=== PATIENT | female | born 1960 | race Caucasian/White ===

== ENCOUNTER → 2016-08-12 | Outpatient (CLI) | payer MEDICAID ==
--- NOTE | 2016-08-12 12:57 | USB ---
Reason for exam: clinical finding. History: Patient is postmenopausal. Family history of breast cancer in paternal aunt at age 60. Took estrogen for 3 years. Took progesterone for 3 years. Physical Findings: Nurse Summary: x 2 palpable areas (nurse kp). US Breast LT Left breast ultrasound including all four quadrants, the retroareolar region and axilla demonstrates a 0.4 x 0.3 x 0.3cm round lesion too small to characterize at 2 o'clock. These results were verbally communicated with the patient and result sheet given to the patient on 08/12/16. ASSESSMENT: Benign, BI-RAD 2 RECOMMENDATION: Follow-up diagnostic mammogram of both breasts in 6 months. Manage patient on a clinical basis.
== END | disposition home or self-care (01) ==
LOC: RADUSWWP 10:54
PROVIDERS: ATTEND Specialist
DX: N63 Unspecified lump in breast (principal)

== ENCOUNTER → 2016-09-21 | Outpatient (CLI) | payer MEDICAID ==
[2016-09-21 08:49] LABS: Hemoglobin A1C 4.9 % (4.2-6.1)
[2016-09-21 12:08] LABS: ALT 36 U/L (9-52); AST 24 U/L (14-36); Alkaline Phosphatase 50 U/L (38-126); Anion Gap 9 mmol/L; Blood Urea Nitrogen 13 mg/dL (7-17); Calcium 9.6 mg/dL (8.4-10.2); Carbon Dioxide 27 mmol/L (22-30); Chloride 107 mmol/L (98-107); Cholesterol 187 mg/dL (<200); Glucose 80 mg/dL (74-99); HDL Cholesterol 95 mg/dL (40-60); Non-African American GFR(MDRD) >60 (>60 ml/min/1.73 sqM); Potassium 4.7 mmol/L (3.5-5.1); Sodium 143 mmol/L (137-145); Total Bilirubin 0.8 mg/dL (0.2-1.3); Total Protein 6.9 g/dL (6.3-8.2); Triglycerides 57 mg/dL (<150)
[2016-09-21 12:39] LABS: Estradiol 46 pg/mL
== END | disposition home or self-care (01) ==
LOC: LABWHC1 06:58
PROVIDERS: ATTEND Specialist
DX: R79.89 Other specified abnormal findings of blood chemistry (principal); F90.0 Attention-deficit hyperactivity disorder, predominantly inattentive type; L65.9 Nonscarring hair loss, unspecified; R53.82 Chronic fatigue, unspecified; E78.5 Hyperlipidemia, unspecified; R79.9 Abnormal finding of blood chemistry, unspecified; R53.83 Other fatigue; E03.9 Hypothyroidism, unspecified; R73.01 Impaired fasting glucose; D89.9 Disorder involving the immune mechanism, unspecified; F51.02 Adjustment insomnia; E88.81 Metabolic syndrome and other insulin resistance; N95.9 Unspecified menopausal and perimenopausal disorder; M85.80 Other specified disorders of bone density and structure, unspecified site; E07.9 Disorder of thyroid, unspecified; R63.5 Abnormal weight gain
CPT/HCPCS: 36415; 80053; 80061; 82306; 82670; 83036; 83090; 83525; 84144; 84439; 84443; 84481; 86141; 86376; 86800

== ENCOUNTER → 2017-04-12 | Outpatient (CLI) | payer MEDICAID ==
[2017-04-12 11:04] LABS: Basophils % (A) 1 %; CHCM 33.4; Eosinophils # (A) 0.1 k/uL (0-0.7); Eosinophils % (A) 2 %; HCT 36.5 % (34.0-46.0); HDW 2.05; HGB 12.3 gm/dL (11.4-16.0); Luc # (Auto) 0.11; Luc % (Auto) 2; Lymphocytes % (A) 41 %; MCH 31.3 pg (25.0-35.0); MCHC 33.6 g/dL (31.0-37.0); Mean Platelet Volume 8.6; Monocytes # (A) 0.3 k/uL (0-1.0); Monocytes % (A) 6 %; Neutrophils # (A) 2.3 k/uL (1.3-7.7); Neutrophils % (A) 49 %; RBC 3.92 m/uL (3.80-5.40); RDW 11.8 % (11.5-15.5); WBC 4.8 k/uL (3.8-10.6); WBC (Perox) 4.92
[2017-04-12 12:37] LABS: ALT 33 U/L (9-52); AST 28 U/L (14-36); Alkaline Phosphatase 54 U/L (38-126); Anion Gap 10 mmol/L; Blood Urea Nitrogen 13 mg/dL (7-17); Calcium 9.5 mg/dL (8.4-10.2); Carbon Dioxide 25 mmol/L (22-30); Chloride 102 mmol/L (98-107); Glucose 86 mg/dL (74-99); Non-African American GFR(MDRD) >60 (>60 ml/min/1.73 sqM); Potassium 4.4 mmol/L (3.5-5.1); Sodium 137 mmol/L (137-145); Total Bilirubin 0.4 mg/dL (0.2-1.3); Total Protein 7.2 g/dL (6.3-8.2)
[2017-04-12 17:10] LABS: Estradiol <11.8 pg/mL
== END | disposition home or self-care (01) ==
LOC: LABWHC1 10:21
PROVIDERS: ATTEND Family Medicine
DX: E03.9 Hypothyroidism, unspecified (principal); N95.1 Menopausal and female climacteric states
CPT/HCPCS: 36415; 80053; 82670; 83001; 83002; 84144; 84146; 84439; 84443; 84481; 85025; 86376; 86800

== ENCOUNTER → 2017-04-27 | Outpatient (CLI) | payer MEDICAID ==
--- NOTE | 2017-04-27 14:23 | US ---
EXAMINATION TYPE: US thyroid st tissue head/neck DATE OF EXAM: 04/27/2017 COMPARISON: US 2014 CLINICAL HISTORY: E04.1 Thyroid nodule; c/o throat phlegm GLAND SIZE: Right Lobe: 5.9 x 2.2 x 1.7 cm Overall Parenchyma: heterogenous Left Lobe: 4.8 x 1.4 x 1.1 cm Overall Parenchyma: heterogeneous Isthmus Thickness: 0.3 cm NODULES RIGHT: # of nodules measured on right: 1 1. 4.1 X 2.5 x 1.7 cm hypoechoic mixed nodule at the mid pole with well-defined margins; present wi th microcalcifications and larger central calcification. This nodule is wider than tall and shows in tranodular vascularity. Prior size: 3.7 x 1.3 x 2.3 cm LEFT: # of nodules measured on left: 3 largest of multiple 1. 1.4 X 1.1 x 0.8 cm hypoechoic mixed nodule at the lower pole with well-defined margins. This no dule is wider than tall and shows no intranodular vascularity. Prior size: 1.2 x 0.9 x 0.9 cm 2. 1.0 X 0.7 x 0.7 cm hypoechoic solid nodule at the lower lateral pole with well-defined margins; p resent with microcalcifications. This nodule is wider than tall and shows intranodular vascularity. Prior size: 1.2 x 0.6 x 0.8 cm 3. 0.7 X 0.4 x 0.5 cm hypoechoic solid nodule at the mid lower pole with well-defined margins; prese nt with microcalcifications. This nodule is taller than wide and shows no intranodular vascularity. Prior size: 0.7 x 0.3 x 0.7 cm ISTHMUS: # of nodules measured in the isthmus: 0 Bilateral neck scanned, no evidence of lymphadenopathy. IMPRESSION: 1. Multinodular thyroid. There is interval mental increase in size of the dominant right thyroid nodu le which measures larger compared to the previous exam. 2. There is a left-sided thyroid nodule measuring 1.4 cm and previously measured 1.2 cm and demonstra kalin minimal change. 3. Remaining nodules are stable in size. 4. Tissue is somewhat heterogeneous correlate for thyroiditis.
== END | disposition home or self-care (01) ==
LOC: RADUSWWP 12:14
PROVIDERS: ATTEND Family Medicine
DX: E04.2 Nontoxic multinodular goiter (principal)
CPT/HCPCS: 76536

== ENCOUNTER → 2017-05-15 | Outpatient (CLI) | payer MEDICAID ==
--- NOTE | 2017-05-16 07:32 | MM ---
Reason for exam: additional evaluation requested from prior study. Last mammogram was performed 10 months ago. History: Patient is postmenopausal. Family history of breast cancer in paternal aunt at age 60. Took estrogen for 3 years. Took progesterone for 3 years. Physical Findings: Nurse did not find any significant physical abnormalities on exam. MG 3D Diag Mammo W/Cad LANE Bilateral CC and MLO view(s) were taken. Prior study comparison: August 12, 2016, left breast US breast LT. July 26, 2016, bilateral MG 3d screening mammo w/cad. October 30, 2015, right breast MG 3d diag mammo w/cad RT. The breast tissue is heterogeneously dense. This may lower the sensitivity of mammography. There is chronic nodularity in the right breast, this is unchanged for 2 years compatible with a benign etiology. Nodular asymmetry superior left breast on the MLO view. These results were verbally communicated with the patient and result sheet given to the patient on 05/15/17. ASSESSMENT: Benign, BI-RAD 2 RECOMMENDATION: Routine screening mammogram of both breasts in 1 year. Note that the patient has extensive nodularity in the upper outer quadrant of the right breast. Patient should continue monthly self breast exams.
== END | disposition home or self-care (01) ==
LOC: RADMAMWWP 15:52
PROVIDERS: ATTEND Specialist
DX: R92.8 Other abnormal and inconclusive findings on diagnostic imaging of breast (principal)
CPT/HCPCS: G0204; G0279

== ENCOUNTER 2017-06-12 11:15 | Day surgery (SDC) | payer MEDICAID ==
[~2017-06-12 11:15] MED LIST: ALPRAZolam 0.5 MG TAB PO ONE; LIDOCAINE-PRILOCAINE 2.5-2.5% CREAM 5 GM TUBE TOPICAL STA
--- NOTE | 2017-06-12 15:58 | US ---
ULTRASOUND GUIDED FNA THYROID BIOPSY: CLINICAL HISTORY: Request for biopsy of the 4.1 cm right thyroid nodule and 1.4 similar left thyroid nodule FINDINGS: The procedure was explained to the patient. The risks, complications, benefits and alternatives were discussed and any questions were answered. Informed consent was obtained. Patient was placed supin e on the ultrasound table and prepped and draped in the usual sterile fashion. Right thyroid: Utilizing a 25 gauge needle, five passes were made into the requested right thyroid no dule. A single 18-gauge core sample also obtained. Left thyroid: Utilizing a 25 gauge needle, five passes were made into the requested left thyroid nodu le Patient was stable throughout the procedure. Pathology is pending. All elements of maximal barrier and sterile technique were utilized. IMPRESSION: 1. Successful ultrasound guided FNA thyroid biopsy bilateral thyroid nodules. 2. Successful ultrasound guided core biopsy right thyroid nodule. 3. Note is made that both lesions appear to be more fluid-filled on today's exam with the left thyroi d nodule appearing predominantly cystic which will lower the diagnostic yield.
[2017-06-12 16:08] VITALS: TEMP 97.7
[2017-06-12 16:09] VITALS: BP 124/74; PULSE 74; RESP 16
== END 2017-06-12 14:08 | disposition home or self-care (01) ==
LOC: RADPROMAIN 11:15
PROVIDERS: ATTEND Family Medicine
DX: E04.2 Nontoxic multinodular goiter (principal)
CPT/HCPCS: 10022; 76942; 88173; 88305

== ENCOUNTER → 2017-08-17 | Outpatient (CLI) | payer MEDICAID | END | disposition home or self-care (01) | LOC: RADECHMAIN 12:53 | PROVIDERS: ATTEND Internal Medicine Cardiovascular Disease | DX: R00.2 Palpitations (principal) | CPT/HCPCS: 93270; 93271 ==

== ENCOUNTER → 2017-09-19 | Outpatient (CLI) | payer MEDICAID ==
[2017-09-19 08:21] LABS: T4, Free (Free Thyroxine) 0.67 ng/dL (0.78-2.19)
--- NOTE | 2017-09-19 13:19 | ECHOF ---
Referral Reason:R00.0 tachycardia MEASUREMENTS -------- HEIGHT: 165.1 cm WEIGHT: 58.5 kg BP: 144/69 RVIDd: 3.0 cm (< 3.3) IVSd: 1.0 cm (0.6 - 1.1) LVIDd: 4.8 cm (3.9 - 5.3) LVPWd: 1.0 cm (0.6 - 1.1) IVSs: 1.4 cm LVIDs: 3.4 cm LVPWs: 1.3 cm LA Diam: 3.1 cm (2.7 - 3.8) LAESV Index (A-L): 29.81 ml/m Ao Diam: 3.2 cm (2.0 - 3.7) AV Cusp: 2.1 cm (1.5 - 2.6) MV EXCURSION: 25.206 mm (> 18.000) MV EF SLOPE: 141 mm/s (70 - 150) EPSS: 0.8 cm MV E Skinny: 0.94 m/s MV DecT: 192 ms MV A Skinny: 0.48 m/s MV E/A Ratio: 1.96 RAP: 5.00 mmHg RVSP: 20.98 mmHg FINDINGS -------- Sinus rhythm. This was a technically good study. The left ventricular size is normal. Left ventricular wall thickness is normal. Overall left vent ricular systolic function is normal with, an EF between 60 - 65 %. The right ventricle is normal in size. LA is midly dilated 29-33ml/m2. The right atrium is normal in size. The aortic valve is trileaflet and appears structurally normal. There is trace to mild mitral regurgitation. Mild tricuspid regurgitation present. Right ventricular systolic pressure is normal at < 35 mmHg. Trace/mild (physiologic) pulmonic regurgitation. The aortic root size is normal. Normal inferior vena cava with normal inspiratory collapse consistent with estimated right atrial pre ssure of 5 mmHg. There is no pericardial effusion. CONCLUSIONS -------- 1. Sinus rhythm. 2. This was a technically good study. 3. The left ventricular size is normal. 4. Left ventricular wall thickness is normal. 5. Overall left ventricular systolic function is normal with, an EF between 60 - 65 %. 6. The right ventricle is normal in size. 7. LA is midly dilated 29-33ml/m2. 8. The right atrium is normal in size. 9. The aortic valve is trileaflet and appears structurally normal. 10. There is trace to mild mitral regurgitation. 11. Mild tricuspid regurgitation present. 12. Right ventricular systolic pressure is normal at < 35 mmHg. 13. Trace/mild (physiologic) pulmonic regurgitation. 14. The aortic root size is normal. 15. Normal inferior vena cava with normal inspiratory collapse consistent with estimated right atrial pressure of 5 mmHg. 16. There is no pericardial effusion. CANDY ATTENDANT: Jacy Vo RDCS
== END | disposition home or self-care (01) ==
LOC: LABWHC1 07:04
PROVIDERS: ATTEND Internal Medicine Endocrinology, Diabetes & Metabolism
DX: E05.90 Thyrotoxicosis, unspecified without thyrotoxic crisis or storm (principal); R00.2 Palpitations; R00.0 Tachycardia, unspecified; I49.3 Ventricular premature depolarization
CPT/HCPCS: 36415; 84439; 84443; 84480; 93306

== ENCOUNTER → 2017-12-18 | Outpatient (CLI) | payer MEDICAID ==
--- NOTE | 2017-12-19 09:58 | US ---
EXAMINATION TYPE: US thyroid st tissue head/neck DATE OF EXAM: 12/18/2017 COMPARISON: NONE CLINICAL HISTORY: E04.2 NON TOXIC MULTINODULAR GOITER. Follow up thyroid nodules GLAND SIZE: Right Lobe: 5.2 x 1.8 x 2.7 cm Overall Parenchyma: heterogenous Left Lobe: 4.7 x 1.1 x 1.4 cm Overall Parenchyma: heterogeneous Isthmus Thickness: 0.2 cm NODULES RIGHT: # of nodules measured on right: 1 1. 3.9 X 1.9 x 2.3 cm hypoechoic mixed nodule at the mid pole with well-defined margins; present wi th microcalcifications and larger central calcification. This nodule is wider than tall and shows in tranodular vascularity. Prior size: 4.1 x 1.7 x 2.5 cm LEFT: # of nodules measured on left: 3 1. 1.6 X 1.0 x 1.3 cm hypoechoic mixed nodule at the lower pole with well-defined margins; . This nodule is wider than tall and shows intranodular vascularity. This may be slightly larger than prior exam. Prior size: 1.4 x 0.8 x 1.1 cm 2. 1.3 X 1.1 x 0.9 cm isoechoic solid nodule at the lower pole with well-defined margins; . This no dule is wider than tall and shows intranodular vascularity. This is slightly larger than prior exam. This solid lesion appears hypervascular. Prior size: 1.0 x 0.7 x 0.7 cm 3. 0.8 X 0.6 x 0.7 cm isoechoic solid nodule at the mid pole with well-defined margins; . This nodu le is wider than tall and shows intranodular vascularity. Prior size: 0.7 x 0.4 x 0.5 cm ISTHMUS: # of nodules measured in the isthmus: 0 Bilateral neck scanned, normal appearing lymph node left neck Heterogeneous gland. 1 nodule right lobe. Largest 3 nodules measured left lobe. IMPRESSION: 1. Heterogenous thyroid with multiple nodules present bilaterally. Some cystic nodules are present. 2. The larger nodules on the left are slightly enlarged from comparison study of 2017. 3. Solid nodule on the left which has slightly enlarged over the interval appears hypervascular which can be associated with a neoplasm.
== END | disposition home or self-care (01) ==
LOC: RADUSWWP 06:56
PROVIDERS: ATTEND Internal Medicine Endocrinology, Diabetes & Metabolism
DX: E04.2 Nontoxic multinodular goiter (principal)
CPT/HCPCS: 36415; 76536; 84439; 84443

== ENCOUNTER → 2018-02-26 | Outpatient (CLI) | payer MEDICAID ==
[2018-02-26 07:53] LABS: T4, Free (Free Thyroxine) 0.88 ng/dL (0.78-2.19)
== END | disposition home or self-care (01) ==
LOC: LABWHC1 07:00
PROVIDERS: ATTEND Internal Medicine Endocrinology, Diabetes & Metabolism
DX: E05.90 Thyrotoxicosis, unspecified without thyrotoxic crisis or storm (principal)
CPT/HCPCS: 36415; 84439; 84443

== ENCOUNTER → 2018-04-13 | Outpatient (CLI) | payer MEDICAID ==
[2018-04-13 08:02] LABS: Calcium 9.5 mg/dL (8.4-10.2)
[2018-04-13 16:24] LABS: Thyroid Peroxidase Antibodies 363.7 U/mL (0.0-60.0); Vitamin D 25 Hydroxy 64.3 ng/mL (30.0-100.0)
[2018-04-13 16:56] LABS: Parathyroid Hormone Intact 41.2 pg/mL (14.0-72.0)
[2018-04-13 19:22] LABS: Hemoglobin A1C 4.8 % (4.0-6.0)
== END ==
LOC: LABWHC1 07:01
PROVIDERS: ATTEND Surgery
DX: E04.2 Nontoxic multinodular goiter (principal)
CPT/HCPCS: 36415; 82306; 82310; 82465; 83036; 83970; 84436; 84443; 84480; 86376; 86800

== ENCOUNTER → 2018-05-16 | Outpatient (CLI) | payer MEDICAID ==
--- NOTE | 2018-05-17 10:30 | NM ---
EXAMINATION TYPE: NM thyroid image w uptake DATE OF EXAM: 05/17/2018 COMPARISON: Ultrasound 12/18/2017, nuclear medicine uptake 07/15/2011 HISTORY: Hyperthyroidism TECHNIQUE: Thyroid iodine uptake is calculated and images performed after the oral administration of 350 uCi 1-123 Capsule. FINDINGS: There is normal reduced uptake diffusely throughout the left lobe of the thyroid. Area of c old or reduced uptake involving the inferior pole. Right thyroid demonstrates heterogeneous uptake wi th a focal cold defect involving the upper pole.. The 4 hour iodine uptake is calculated at 23.3% (n ormal range 8-14%). The 24-hour iodine uptake is calculated at 49.4% (normal range 15-35%). IMPRESSION: 1. Findings are compatible with hyperthyroidism which appears new compared to the prior exam of 2010. 2. Diffuse heterogeneous uptake persists throughout the thyroid with marked reduction in uptake invol ving the left lobe of the thyroid. Cold defects involving the upper pole on the right and lower pole.
== END | disposition home or self-care (01) ==
LOC: RADNMMAIN 06:54
PROVIDERS: ATTEND Surgery
DX: E04.2 Nontoxic multinodular goiter (principal)
CPT/HCPCS: 78014; A9516

== ENCOUNTER → 2018-07-20 | Outpatient (CLI) | payer MEDICAID ==
[2018-07-20 12:20] LABS: ALT 20 U/L (8-44); AST 25 U/L (13-35); C Reactive Protein <0.4 mg/dL (0.0-0.8); Calcium 9.7 mg/dL (8.7-10.3)
== END | disposition home or self-care (01) ==
LOC: LABWHC1 06:59
PROVIDERS: ATTEND Surgery
DX: E04.2 Nontoxic multinodular goiter (principal)
CPT/HCPCS: 36415; 82306; 82310; 83970; 84436; 84439; 84443; 84450; 84460; 84480; 86140; 86800

== ENCOUNTER → 2018-08-28 | Outpatient (CLI) | payer MEDICAID ==
[2018-08-28 07:36] LABS: HCT 37.8 % (34.0-46.0); HGB 12.9 gm/dL (11.4-16.0); MCH 32.6 pg (25.0-35.0); MCHC 34.1 g/dL (31.0-37.0); MCV 95.6 fL (80.0-100.0); Mean Platelet Volume 8.5; Platelet Count 177 k/uL (150-450); RBC 3.95 m/uL (3.80-5.40); RDW 12.2 % (11.5-15.5); WBC 3.6 k/uL (3.8-10.6)
[2018-08-28 12:50] LABS: Albumin 4.6 g/dL (3.80-4.90); Albumin/Globulin Ratio 2.3 (1.20-2.10); Anion Gap 7.2 mmol/L (4.00-12.00); Calcium 9.4 mg/dL (8.7-10.3); Carbon Dioxide 26.8 mmol/L (21.6-31.8); Potassium 4.4 mmol/L (3.5-5.5); Total Bilirubin 0.7 mg/dL (0.3-1.2); Total Protein 6.6 g/dL (6.2-8.2)
== END ==
LOC: LABWHC1 06:57
PROVIDERS: ATTEND Specialist
DX: Z01.419 Encounter for gynecological examination (general) (routine) without abnormal findings (principal)
CPT/HCPCS: 36415; 80053; 80061; 82306; 85027

== ENCOUNTER → 2018-09-05 | Outpatient (CLI) | payer MEDICAID ==
--- NOTE | 2018-09-06 10:11 | MM ---
Reason for exam: screening (asymptomatic). Last mammogram was performed 1 year and 4 months ago. History: Patient is postmenopausal. Family history of breast cancer in paternal aunt at age 60. Took estrogen for 3 years. Took progesterone for 3 years. Physical Findings: A clinical breast exam by your physician is recommended on an annual basis and results should be correlated with mammographic findings. MG 3D Screening Mammo W/Cad Bilateral CC and MLO view(s) were taken. Prior study comparison: May 15, 2017, bilateral MG 3d diag mammo w/cad LANE. July 26, 2016, bilateral MG 3d screening mammo w/cad. The breast tissue is heterogeneously dense. This may lower the sensitivity of mammography. There is chronic nodularity bilaterally. There is no dominant lesion. No significant changes when compared with prior studies. ASSESSMENT: Benign, BI-RAD 2 RECOMMENDATION: Routine screening mammogram of both breasts in 1 year.
== END ==
LOC: RADMAMWWP 11:09
PROVIDERS: ATTEND Specialist
DX: Z12.31 Encounter for screening mammogram for malignant neoplasm of breast (principal)
CPT/HCPCS: 77063; 77067

== ENCOUNTER → 2018-09-21 | Outpatient (CLI) | payer MEDICAID ==
[2018-09-21 17:13] LABS: Parathyroid Hormone Intact 56.4 pg/mL (14.0-72.0)
[2018-09-21 17:42] LABS: Vitamin D 25 Hydroxy 68.3 ng/mL (30.0-100.0)
[2018-09-21 17:54] LABS: C Reactive Protein <0.4 mg/dL (0.0-0.8); Thyroid Peroxidase Antibodies 341.2 U/mL (0.0-60.0)
== END ==
LOC: LABWHC1 06:59
PROVIDERS: ATTEND Surgery
DX: E04.2 Nontoxic multinodular goiter (principal)
CPT/HCPCS: 36415; 82306; 83970; 84436; 84439; 84443; 84480; 86140; 86376; 86800

== ENCOUNTER → 2018-10-02 | Outpatient (CLI) | payer MEDICAID ==
--- NOTE | 2018-10-02 18:08 | BD ---
EXAMINATION TYPE: Axial Bone Density DATE OF EXAM: 10/02/2018 COMPARISON: 06/24/2015 CLINICAL HISTORY: 58-year-old female screening for osteoporosis Height: 64 IN Weight: 138 LBS FRAX RISK QUESTIONS: Family History (Parent hip fracture): YES FATHER Secondary Osteoporosis: 2. Hyperthyroidism: YES 3. Menopause before 45: YES AGE 36 RISK FACTORS HISTORY OF: Active: YES Diet low in dairy products/other sources of calcium: YES Postmenopausal woman: AGE 36 Take estrogen and/or progesterone medications: AGE 35 - 37 MEDICATIONS: Thyroid Medications: YES Which medication: TAPZOLE How Lon YEARS Additional Medications: VIT D, TAPZOLE, EXAM MEASUREMENTS: Bone mineral densitometry was performed using the NERI System. Bone mineral density as measured about the Lumbar spine is: ----- L1-L4(G/cm2): 0.902 T Score Values are as follows: ----- L2: -2.1 ----- L3: -2.3 ----- L4: -2.3 ----- L1-L4: -2.3 Bone mineral density has: Decreased -1.2% since study of: 06/24/2015 Bone mineral density about the R hip (g/cm2): 0.793 Bone mineral density about the L hip (g/cm2): 0.748 T Score values are as follows: -----R Neck: -1.8 -----L Neck: -2.1 -----R Total: -1.9 -----L Total: -2.1 Bone mineral density has: Decreased -4.3% since study of: 06/24/2015 IMPRESSION: Osteopenia (T Score between -2.5 and -1). There is slightly increased risk of fracture and the patient may be considered for treatment. Re-Screen 2-5 years. NOTE: T-SCORE=SD OF THE YOUNG ADULT MEAN.
== END | disposition home or self-care (01) ==
LOC: RADBDWWP 12:50
PROVIDERS: ATTEND Specialist
DX: Z13.820 Encounter for screening for osteoporosis (principal); M85.80 Other specified disorders of bone density and structure, unspecified site
CPT/HCPCS: 77080

== ENCOUNTER → 2018-10-26 | Outpatient (CLI) | payer MEDICAID | END | disposition home or self-care (01) | LOC: LABWHC1 07:08 | PROVIDERS: ATTEND Surgery | DX: E04.2 Nontoxic multinodular goiter (principal) | CPT/HCPCS: 36415; 84436; 84443; 84480 ==

== ENCOUNTER → 2018-12-19 | Outpatient (CLI) | payer MEDICAID ==
--- NOTE | 2018-12-19 22:20 | MR ---
EXAMINATION TYPE: MR shoulder LT wo con DATE OF EXAM: 12/19/2018 COMPARISON: NONE HISTORY: Left shoulder pain, dislocation rule out labral tear, Bankart lesion TECHNIQUE: Multiplanar, multisequence imaging of the left shoulder is performed without contrast. FINDINGS: Rotator Cuff: Supraspinatus and infraspinatus tendons are intact. Subscapularis tendon is intact. Rot ator cuff muscle bulk is preserved. Acromioclavicular Joint: Moderate narrowing and capsular hypertrophy is seen. Underlying fat plane is effaced coronal image 15. Distal acromion morphology is unremarkable. Glenohumeral Joint: Severe narrowing with subchondral cystic change in involving the osseous glenoid central aspect and extending inferiorly. Moderate to large joint effusion. Labrum: The superior labrum show suspicious collapse and abnormal signal coronal image 19, SLAP type tear is suspected. Biceps Tendon: The long head of biceps is in normal location within bicipital groove. Intracapsular p ortion shows suspected focus of increased signal seen best on images 19 through 21. Bone marrow signal: There is loss its spherical shape superior most axial cuts of the humeral head wi th bony defect along the posterior margin where there is heterogeneous reactive signal extending into the proximal humeral metaphysis. Other: There is heterogeneous increased signal or edema extending into the subscapularis muscle IMPRESSION: 1. 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 2. Confirmation of superior labral suspect a SLAP tear. 3. Moderate to advanced glenohumeral joint arthropathy as detailed above. 4. Partial tear or intracapsular portion long head of biceps tendon felt present.
== END | disposition home or self-care (01) ==
LOC: RADMRIMAIN 16:37
PROVIDERS: ATTEND Physician Assistant
DX: M19.012 Primary osteoarthritis, left shoulder (principal); M21.822 Other specified acquired deformities of left upper arm

== ENCOUNTER → 2019-05-09 | Outpatient (CLI) | payer MEDICAID ==
[2019-05-09 11:38] LABS: Vitamin D 25 Hydroxy 57.3 ng/mL (30.0-100.0)
[2019-05-09 11:40] LABS: C Reactive Protein <0.4 mg/dL (0.0-0.8)
== END | disposition home or self-care (01) ==
LOC: LABWHC1 06:59
PROVIDERS: ATTEND Surgery
DX: E04.2 Nontoxic multinodular goiter (principal)
CPT/HCPCS: 36415; 82306; 84436; 84443; 84480; 86140

== ENCOUNTER → 2019-05-21 | Outpatient (CLI) | payer MEDICAID ==
[2019-05-22 01:05] LABS: ALT 21 U/L (8-44); AST 27 U/L (13-35); GGT 22 U/L (0-38)
== END | disposition home or self-care (01) ==
LOC: LABWHC1 17:14
PROVIDERS: ATTEND Surgery
DX: E06.3 Autoimmune thyroiditis (principal)
CPT/HCPCS: 36415; 82977; 84450; 84460

== ENCOUNTER → 2019-07-30 | Outpatient (CLI) | payer MEDICAID ==
[2019-07-30 11:58] LABS: ALT 20 U/L (8-44); AST 28 U/L (13-35); C Reactive Protein <0.4 mg/dL (0.0-0.8); GGT 20 U/L (0-38)
== END | disposition home or self-care (01) ==
LOC: LABWHC1 07:00
PROVIDERS: ATTEND Surgery
DX: E04.2 Nontoxic multinodular goiter (principal)
CPT/HCPCS: 36415; 82977; 84436; 84443; 84450; 84460; 84480; 86140

== ENCOUNTER → 2020-03-06 | Outpatient (CLI) | payer MEDICAID ==
--- NOTE | 2020-03-10 08:21 | MM ---
Reason for exam: screening (asymptomatic). Last mammogram was performed 1 year and 6 months ago. History: Patient is postmenopausal. Family history of breast cancer in paternal aunt at age 60. Took estrogen for 3 years. Took progesterone for 3 years. Physical Findings: A clinical breast exam by your physician is recommended on an annual basis and results should be correlated with mammographic findings. MG 3D Screening Mammo W/Cad Bilateral CC, MLO, and XCCL view(s) were taken. Prior study comparison: September 05, 2018, bilateral MG 3d screening mammo w/cad. May 15, 2017, bilateral MG 3d diag mammo w/cad LANE. The breast tissue is heterogeneously dense. This may lower the sensitivity of mammography. Finding #1: There are multiple typically benign round masses in the right breast. Finding #2: There are typically benign calcifications in both breasts. No significant changes in finding since September 05, 2018 and May 15, 2017. ASSESSMENT: Benign, BI-RAD 2 RECOMMENDATION: Routine screening mammogram of both breasts in 1 year.
== END | disposition home or self-care (01) ==
LOC: RADMAMWWP 07:05
PROVIDERS: ATTEND Specialist
DX: Z12.31 Encounter for screening mammogram for malignant neoplasm of breast (principal)
CPT/HCPCS: 77063; 77067

== ENCOUNTER → 2020-05-08 | Outpatient (CLI) | payer MEDICAID ==
[2020-05-08 13:58] LABS: LDL Cholesterol, Direct 117.1 mg/dL (0.0-129.0)
[2020-05-08 14:49] LABS: Hemoglobin A1C 5.2 % (4.0-6.0)
== END | disposition home or self-care (01) ==
LOC: LABWHC1 07:10
PROVIDERS: ATTEND Surgery
DX: E78.5 Hyperlipidemia, unspecified (principal); E04.2 Nontoxic multinodular goiter; R94.5 Abnormal results of liver function studies
CPT/HCPCS: 36415; 82465; 82977; 83036; 83718; 83721; 84436; 84443; 84450; 84460; 84480

== ENCOUNTER → 2020-08-06 | Outpatient (CLI) | payer MEDICAID | END | disposition home or self-care (01) | LOC: LABWHC1 10:14 | PROVIDERS: ATTEND Surgery | DX: E04.2 Nontoxic multinodular goiter (principal) | CPT/HCPCS: 36415; 84436; 84439; 84443; 84480 ==

== ENCOUNTER → 2020-09-22 | Outpatient (CLI) | payer MEDICAID ==
[2020-09-22 11:39] LABS: Chol/HDL Ratio 2.33; LDL Cholesterol,Calculated 101.8 mg/dL (0.0-131.0); VLDL Calculation 14.2 mg/dL (5.00-40.00)
== END | disposition home or self-care (01) ==
LOC: LABWHC1 06:57
PROVIDERS: ATTEND Surgery
DX: E05.00 Thyrotoxicosis with diffuse goiter without thyrotoxic crisis or storm (principal)
CPT/HCPCS: 36415; 80061; 83036; 84436; 84443; 84480

== ENCOUNTER → 2021-02-11 | Outpatient (CLI) | payer MEDICAID | END | disposition home or self-care (01) | LOC: LABWHC1 10:10 | PROVIDERS: ATTEND Surgery | DX: E04.2 Nontoxic multinodular goiter (principal) | CPT/HCPCS: 36415; 84436; 84443; 84480; 86800 ==

== ENCOUNTER → 2021-03-17 | Outpatient (CLI) | payer MEDICAID ==
--- NOTE | 2021-03-18 11:16 | MM ---
Reason for exam: screening (asymptomatic). Last mammogram was performed 1 year ago. History: Patient is postmenopausal. Family history of breast cancer in paternal aunt at age 60. Took estrogen for 3 years. Took progesterone for 3 years. Physical Findings: A clinical breast exam by your physician is recommended on an annual basis and results should be correlated with mammographic findings. MG 3D Screening Mammo W/Cad Bilateral CC and MLO view(s) were taken. Prior study comparison: March 06, 2020, bilateral MG 3d screening mammo w/cad. September 05, 2018, bilateral MG 3d screening mammo w/cad. The breast tissue is heterogeneously dense. This may lower the sensitivity of mammography. Stable benign calcifications. There is chronic nodularity in the right breast. No significant changes when compared with prior studies. ASSESSMENT: Benign, BI-RAD 2 RECOMMENDATION: Routine screening mammogram of both breasts in 1 year.
== END | disposition home or self-care (01) ==
LOC: RADMAMWWP 15:25
PROVIDERS: ATTEND Specialist
DX: Z12.31 Encounter for screening mammogram for malignant neoplasm of breast (principal); Z78.0 Asymptomatic menopausal state; Z80.3 Family history of malignant neoplasm of breast
CPT/HCPCS: 77063; 77067

== ENCOUNTER → 2021-04-22 | Outpatient (CLI) | payer MEDICAID ==
--- NOTE | 2021-04-23 10:42 | USB ---
Reason for exam: clinical finding. History: Patient is postmenopausal. Family history of breast cancer in paternal aunt at age 60. Took estrogen for 3 years. Took progesterone for 3 years. Physical Findings: Nurse Summary: all soft, nodular, movable (nurse ts). US Breast BILAT Right complete breast ultrasound includes all four quadrants, the retroareolar region and axilla. Finding demonstrates a 3 x 2 x 3mm oval, cystic lesion at 2 o'clock, a 20 x 5 x 17mm lobular, mixed lesion at 10 o'clock for which an aspiration is recommended, a 11 x 10 x 19mm lobular, mixed lesion at 11 o'clock for which an aspiration is recommended and a 4 x 5 x 4mm oval, mixed lesion at 11 o'clock for which an aspiration is recommended. Left complete breast ultrasound includes all four quadrants, the retroareolar region and axilla. Finding demonstrates a 5 x 1 x 4mm oval, cystic lesion at 2 o'clock. These results were verbally communicated with the patient and result sheet given to the patient on 04/22/21. ASSESSMENT: Suspicious, BI-RAD 4 RECOMMENDATION: Aspiration of the right breast. Called Dr. Turcios's office with mammographic findings and office will call with results. Aspiration scheduled for 04/26/21 at 10:30. PRELIMINARY REPORT CALLED AND FAXED TO DR. TURCIOS ON 04/23/21.
== END | disposition home or self-care (01) ==
LOC: RADUSWWP 07:23
PROVIDERS: ATTEND Specialist
DX: N64.89 Other specified disorders of breast (principal); Z80.3 Family history of malignant neoplasm of breast

== ENCOUNTER → 2021-04-26 | Day surgery (SDC) | payer MEDICAID ==
[2021-04-26 09:58] VITALS: RESP 12
[2021-04-26 11:29] VITALS: BP 107/72; PULSE 60; TEMP 98.5
--- NOTE | 2021-04-26 16:17 | USB ---
EXAMINATION TYPE: US breast aspiration single RT DATE OF EXAM: 04/26/2021 CLINICAL HISTORY: R92.8 ABN MAMMO. TECHNIQUE: Ultrasound guided vaccuum assisted cyst aspiration of right breast. COMPARISON: 04/22/2021 FINDINGS: The ultrasound guided core biopsy procedure was explained to the patient. The risks, benefits, alternatives were discussed. An informed consent was then obtained. Timeout was performed. The patient was placed in supine positioning for imaging and for the procedure. The overlying skin was prepped with betadine and sterilely draped in usual sterile fashion. Lidocaine 1% was used as anesthetic into the skin and deeper breast tissue up to area of concern in the breast. Under ultrasound guidance, an 18-gauge vacuum assisted aspiration was performed. Thick white like substance was aspirated at the 11:00 position. This appeared to have complete collapse. A biopsy clip was left in lesion. Ribbon clip was placed. Under ultrasound guidance, an 18-gauge vacuum assisted aspiration was performed. Clear to straw-colored fluid was aspirated at the 10:00 position. This appeared to have complete collapse. A biopsy clip was left in lesion. Wing clip was placed. Samples were labeled and transferred to pathology for additional evaluation. Good hemostasis was obtained with direct pressure. Discharge instructions were discussed with the patient. The patient will follow up with the referring physician for results. Postprocedure mammogram: The patient was transferred to mammography for physician ordered post procedure mammogram for clip placement verification. The clips are in the expected region of the cyst aspirations. The patient tolerated the procedure well without any immediate complication. The patient was discharged to home in stable condition. IMPRESSION: 1. Successful ultrasound guided cyst aspiration 2 locations right upper outer quadrant. Recommendations: 1. Recommendations are pending pathology results. Pathology Results: Benign A. RIGHT BREAST, 11:00, ULTRASOUND GUIDED CYST ASPIRATE: Degenerated cellular material consistent with cyst contents. B. RIGHT BREAST, 10:00, ULTRASOUND GUIDED CYST ASPIRATE: Degenerated cellular material consistent with cyst contents. Recommendation Follow up ultrasound of the right breast in 6 months. AKIRA
--- NOTE | 2021-04-26 16:19 | MM ---
EXAMINATION TYPE: US breast aspiration single RT DATE OF EXAM: 04/26/2021 CLINICAL HISTORY: R92.8 ABN MAMMO. TECHNIQUE: Ultrasound guided vaccuum assisted cyst aspiration of right breast. COMPARISON: 04/22/2021 FINDINGS: The ultrasound guided core biopsy procedure was explained to the patient. The risks, benef its, alternatives were discussed. An informed consent was then obtained. Timeout was performed. The patient was placed in supine positioning for imaging and for the procedure. The overlying skin w as prepped with betadine and sterilely draped in usual sterile fashion. Lidocaine 1% was used as ane sthetic into the skin and deeper breast tissue up to area of concern in the breast. Under ultrasound guidance, an 18-gauge vacuum assisted aspiration was performed. Thick white like sub stance was aspirated at the 11:00 position. This appeared to have complete collapse. A biopsy clip wa s left in lesion. Ribbon clip was placed. Under ultrasound guidance, an 18-gauge vacuum assisted aspiration was performed. Clear to straw-color ed fluid was aspirated at the 10:00 position. This appeared to have complete collapse. A biopsy clip was left in lesion. Wing clip was placed. Samples were labeled and transferred to pathology for additional evaluation. Good hemostasis was obtained with direct pressure. Discharge instructions were discussed with the lindsay leggett. The patient will follow up with the referring physician for results. Postprocedure mammogram: The patient was transferred to mammography for physician ordered post proced ure mammogram for clip placement verification. The clips are in the expected region of the cyst aspi rations. The patient tolerated the procedure well without any immediate complication. The patient was dischar ged to home in stable condition. IMPRESSION: 1. Successful ultrasound guided cyst aspiration 2 locations right upper outer quadrant. Recommendations: 1. Recommendations are pending pathology results.
== END ==
LOC: RADUSWWP 09:15
PROVIDERS: ATTEND Specialist
DX: N60.01 Solitary cyst of right breast (principal); R92.8 Other abnormal and inconclusive findings on diagnostic imaging of breast
CPT/HCPCS: 88108; 77065; 76942; 19000; 19001; A4648; J2001

== ENCOUNTER → 2021-06-01 | Outpatient (CLI) | payer MEDICAID, OTHER | END | disposition home or self-care (01) | LOC: LABWHC1 08:07 | PROVIDERS: ATTEND Emergency Medicine | DX: Z20.822 Contact with and (suspected) exposure to COVID-19 (principal) | CPT/HCPCS: 87635 ==

== ENCOUNTER → 2021-06-02 | Outpatient (CLI) | payer MEDICAID, OTHER | END | disposition home or self-care (01) | LOC: LABWHC1 07:09 | PROVIDERS: ATTEND Emergency Medicine | DX: Z20.822 Contact with and (suspected) exposure to COVID-19 (principal) | CPT/HCPCS: 87635 ==

== ENCOUNTER → 2021-06-10 | Outpatient (CLI) | payer MEDICAID ==
[2021-06-10 18:04] LABS: C Reactive Protein <0.30 mg/dL (0.00-0.80)
== END | disposition home or self-care (01) ==
LOC: LABWHC1 07:25
PROVIDERS: ATTEND Surgery
DX: E04.2 Nontoxic multinodular goiter (principal)
CPT/HCPCS: 36415; 82306; 84436; 84443; 84480; 86140

== ENCOUNTER → 2021-12-30 | Outpatient (CLI) | payer MEDICAID ==
[2021-12-30 18:42] LABS: C Reactive Protein <0.30 mg/dL (0.00-0.80)
[2021-12-30 23:25] LABS: Thyroid Peroxidase Antibodies 97.7 U/mL (0.0-33.0)
== END | disposition home or self-care (01) ==
LOC: LABWHC1 12:00
PROVIDERS: ATTEND Surgery
DX: E06.3 Autoimmune thyroiditis (principal)
CPT/HCPCS: 36415; 82306; 84436; 84443; 84480; 86140; 86376; 86800

== ENCOUNTER → 2022-05-23 | Outpatient (CLI) | payer MEDICAID ==
--- NOTE | 2022-05-23 15:09 | MM ---
Reason for Exam: Follow-up at short interval from prior study. Last mammogram was performed 1 year(s) and 2 month(s) ago. Patient History: Menarche at age 13. First Full-Term at age 26. Postmenopausal. Patient used Estrogen for 3 years. Patient used Progesterone for 3 years. 04/26/2021, Benign Cyst Aspiration on the right side. 04/26/2021, Benign Cyst Aspiration on the right side. Paternal aunt had breast cancer, age 60. Risk Values: Nara 5 year model risk: 1.6%. NCI Lifetime model risk: 7.9%. Prior Study Comparison: 07/26/2016 Bilateral Screening Mammogram, [facility]. 05/15/2017 Bilateral Diagnostic Mammogram, [facility]. 09/05/2018 Bilateral Screening Mammogram, [facility]. 03/06/2020 Bilateral Screening Mammogram, [facility]. 03/17/2021 Bilateral Screening Mammogram, [facility]. 04/26/2021 Right Diagnostic Mammogram, [facility]. Tissue Density: The breast tissue is heterogeneously dense. This may lower the sensitivity of mammography. Findings: Analyzed By CAD. Right breast surgical clip is present. Overall there remains right upper outer quadrant cysts as seen on prior ultrasound. No evidence of suspicious mass, calcification or distortion in the left breast. Benign-appearing calcifications are seen in the left breast. There are benign-appearing calcifications in the right breast. Overall Assessment: Incomplete: need additional imaging evaluation, BI-RAD 0 Management: Diagnostic Breast Ultrasound of the right breast. A clinical breast exam by your physician is recommended on an annual basis and results should be correlated with mammographic findings. This exam should not preclude additional follow-up of suspicious palpable abnormalities. Results were given to the patient verbally at the time of exam. Electronically signed and approved by: Mark Martinez DO
--- NOTE | 2022-05-23 15:28 | USB ---
Patient History: Menarche at age 13. First Full-Term at age 26. Postmenopausal. Patient used Estrogen for 3 years. Patient used Progesterone for 3 years. 04/26/2021, Benign Cyst Aspiration on the right side. 04/26/2021, Benign Cyst Aspiration on the right side. Paternal aunt had breast cancer, age 60. Risk Values: Nara 5 year model risk: 1.6%. NCI Lifetime model risk: 7.9%. Technique: Method: Targeted. Prior Study Comparison: 03/06/2020 Bilateral Screening Mammogram, [facility]. 03/17/2021 Bilateral Screening Mammogram, [facility]. 04/26/2021 Right Diagnostic Mammogram, [facility]. Findings: The upper outer quadrant of the right breast, the axilla of the right breast and the retroareolar of the right breast were scanned. Right breast upper outer quadrant was scanned including the retroareolar and axillary regions. Multiple cysts are again seen in the upper outer quadrant, similar which are complicated with thin septation. There is new, not seen on prior 2 ultrasounds more solid-appearing lesion at 11:00 7 cm from nipple measuring 5 x 5 x 5 mm. Overall Assessment: Probably benign, BI-RAD 3 Management: Diagnostic Breast Ultrasound of the right breast. Follow-up ultrasound in 6 months for right breast 11:00 centimeters from nipple hypoechoic solid appearing lesion not definitely seen on prior's. This may represent a calcaneal cyst. Attention follow-up ultrasound. A clinical breast exam by your physician is recommended on an annual basis and results should be correlated with mammographic findings. This exam should not preclude additional follow-up of suspicious palpable abnormalities. ??Results were given to the patient verbally at the time of exam. Electronically signed and approved by: Mark Martinez DO
== END | disposition home or self-care (01) ==
LOC: RADMAMWWP 14:10
PROVIDERS: ATTEND Specialist
DX: R92.8 Other abnormal and inconclusive findings on diagnostic imaging of breast (principal); Z78.0 Asymptomatic menopausal state; Z80.3 Family history of malignant neoplasm of breast
CPT/HCPCS: 77062; 77066

== ENCOUNTER → 2022-05-26 | Outpatient (CLI) | payer MEDICAID ==
[2022-05-27 00:01] LABS: C Reactive Protein <0.30 mg/dL (0.00-0.80)
== END | disposition home or self-care (01) ==
LOC: LABWHC1 14:52
PROVIDERS: ATTEND Surgery
DX: E06.3 Autoimmune thyroiditis (principal)
CPT/HCPCS: 36415; 82306; 84436; 84443; 84480; 86140; 86376; 86800